=== PATIENT | male | born 1960 | race Caucasian/White ===

== ENCOUNTER 2020-01-03 11:00 | Emergency (ER) | payer MEDICARE, MEDICAID, SELFPAY ==
--- NOTE | 2020-01-03 11:01 | XR_ITS ---
WS: [id number] CHEST XRAY TECHNIQUE: Portable chest. CLINICAL INFORMATION: chest pain COMPARISON: None. FINDINGS: Heart: Normal cardiac silhouette. Lungs: Moderate chronic emphysematous changes. Bones: Hypertrophic changes thoracic spine. XR/XR chest 1V portable [id number] IMPRESSION: No acute chest findings
--- NOTE | 2020-01-03 11:01 | ECG_ITS ---
Measurements Intervals [place] Rate: 97 P: -58 HI: 121 QRS: 35 QRSD: 68 T: 72 QT: 334 QTc: 425 ECTOPIC ATRIAL RHYTHM ABNORMAL RHYTHM ECG No previous ECG available for comparison Electronically Signed On 01-05-2020 18:23:51 CDT by Flory Pino M.D. [id number]
[2020-01-03 11:05] VITALS: BMI 36.3
--- NOTE | 2020-01-03 11:10 | W.ED.CHESTPA ---
HPI - Chest Pain General: Chief Complaint: Chest Pain Stated Complaint: cp Time Seen by Provider: 01/03/20 11:03 History of Present Illness: HPI narrative: This patient is a 59-year-old male presenting with chest pain for about an hour. He lives in [place] and he and his were out for a drive today. He reports that the chest pain started while driving and is still ongoing. He has chronic shortness of breath due to COPD. He tells me that he has a 4.2 cm aneurysm on the side of his heart. He takes blood pressure medication and for medicines for bipolar disorder. He thinks he also takes a medicine that starts with a be because of the aneurysm. He is never had a heart attack that he knows of. He was admitted to the hospital in [place] for a few nights due to similar chest pain and apparently nothing serious was found. He also has some tingling in his left hand but notes that he has a slipped disc in his neck that sometimes causes that as well. MD complaint: chest pain Pertinent past history: known aortic aneurysm (He reports having an aneurysm but is unclear on its location) Onset (ago): hour(s) (1) Timing of current episode: constant Prior episodes: Yes Onset: during rest Pain location: left chest Pain radiation: left arm Severity: severe Quality: tightness and fullness Relieving factors: nothing Exacerbating factors: nothing Associated symptoms: Reports dyspnea; Deny abdominal pain, fever(s), nausea or vomiting Treatment prior to arrival: none Review of Systems General: Reports: 10 or more systems reviewed and unremarkable except in HPI and below Const: Denies: fever(s), chills, fatigue or malaise Eyes: Denies: change in vision ENMT: Denies: odynophagia Card: Reports: chest pain; Denies: swelling of feet/ankles Resp: Reports: dyspnea GI: Denies: abdominal pain, nausea or vomiting : Denies: flank pain Musc: Denies: neck pain or back pain Skin/Breast: Denies: rash Neuro: Denies: headache(s), numbness in extremities or weakness in extremities Scott/Lymph: Denies: easy bruising or easy bleeding PFSH ED PFSH: Social History Smoking and tobacco status: current every day smoker Physical Exam Const: COMMON NORMALS: no acute distress, patient oriented x3, no limitations and alert GENERAL APPEARANCE: cooperative and in distress (Mild, appears uncomfortable) NUTRITIONAL APPEARANCE: obese HENMT: HEAD & SCALP: normal to inspection FACE & SINUS: normal facial exam Eye: GENERAL EYE: appearance normal, both eyes and all related structures Neck/C-Spine: COMMON NORMALS: supple, no meningeal signs and no JVD Chest: COMMONS NORMALS: normal inspection of the chest Resp: COMMON NORMALS: normal respiratory effort, No use of accessory muscles and clear to auscultation bilaterally AUSCULTATION: clear to auscultation bilaterally and wheezes (Bilateral) scattered wheezes Cardio: COMMON NORMALS: no JVD, regular rate, regular rhythm and No murmurs present (Cardio) RATE: regular rate RHYTHM: regular rhythm GI: COMMON NORMALS: Normal to inspection, nondistended, normoactive bowel sounds present, Soft to palpation and non-tender INSPECTION: Yes normal to inspection AUSCULTATION: Yes normoactive bowel sounds PALPATION: Yes Soft to palpation Back/Pelvis: COMMON NORMALS: thoracic and lumbar spine normal to inspection Extremity: COMMON NORMALS: normal to inspection Neuro: COMMON NORMALS: patient oriented x3, moves all extremities, no focal motor deficits and no sensory deficits noted SENSORIUM/ORIENTATION: Yes alert MENINGEAL SIGNS: Yes no meningeal signs Psych: COMMON NORMALS: mental status grossly normal, cooperative and normal affect Skin: COMMON NORMALS: no rashes or lesions noted and turgor normal GENERAL SKIN EXAM: no rashes or lesions noted and turgor normal Course Reevaluation(s): Reevaluation #1: Patient feeling better. BP better. CT shows no aneurysm or other clinically significant abnormality. Second troponin pending. Reevaluation #2: Patient was restless and eager to be discharged. His CT came back with no aneurysm. His troponin and delta troponins were negative. His EKGs were completely normal. He was symptom-free at the time of discharge and plans to go home and follow-up with his own doctor. He understands that the limited work-up in the ED is not a definitive diagnosis of either heart disease or its absence. Vital Signs: Vital signs: Vital Signs Temperature 98.4 F 01/03/20 11:12 Pulse Rate 83 01/03/20 13:56 Respiratory Rate 19 H 01/03/20 13:56 Blood Pressure 166/104 01/03/20 13:56 Pulse Oximetry 95 01/03/20 13:56 MDM - Chest Pain Lab Data: Labs: Lab Results 01/03/20 01/03/20 01/03/20 Range/Units 11:22 11:22 11:22 WBC 7.3 (4.0-10.0) 10^3/ uL RBC 5.42 H (4.1-5.3) 10^6/u L Hgb 16.7 H (11.7-16.6) g/dL Hct 49.2 (42.0-52.0) % MCV 90.8 (80-94) fL MCH 30.8 (28.0-34.0) pg MCHC 33.9 (30.0-36.0) g/dL RDW 14.0 (12.1-15.1) % Plt Count 263 (130-400) 10^3/c mm MPV 9.6 (7.4-10.4) fL Neut % (Auto) 67.1 % Lymph % (Auto) 22.0 % [place] % (Auto) 8.0 % Eos % (Auto) 2.0 % Baso % (Auto) 0.5 % Neut # (Auto) 4.9 (1.8-7.7) 10^3/u L Lymph # (Auto) 1.6 (0.8-4.8) 10^3/u L [place] # (Auto) 0.6 (0.2-0.9) 10^3/u L Eos # (Auto) 0.2 (0.0-0.8) 10^3/u L Baso # (Auto) 0.0 (0.0-0.1) 10^3/u L Nucleated RBC % (a uto) 0 % Nucleated RBCs # 0.0 /100WBC Sodium 135 L (136-145) mmol/L Potassium 4.4 (3.5-5.1) mmol/L Chloride 96 L (98-107) mmol/L Carbon Dioxide 27 (22-29) mmol/L Anion Gap 16.4 (5-19) BUN 23 (8-23) mg/dL Creatinine 1.1 (0.7-1.2) mg/dL GFR Calculation 68.1 L (90-130) mL/min Glucose 146 H (65-115) mg/dL Calculated Osmolal ity 279 L (285-295) mOsm/k g Calcium 9.2 (8.5-10.5) mg/dL Total Bilirubin 0.5 (0.15-1.2) mg/dL AST 64 H (0-40) U/L ALT 56 H (0-41) U/L Alkaline Phosphata se 68 (40-130) IU/L Troponin T Baselin e 15 (0-15) ng/mL Troponin T 120 Min ambler (0-15) ng/mL Delta Troponin T (0-10) ABS# Total Protein 7.1 (6.6-8.7) g/dL Albumin 4.4 (3.5-5.2) g/dL Globulin 2.7 (1.3-4.6) g/dL 01/03/20 Range/Units 13:18 WBC (4.0-10.0) 10^3/ uL RBC (4.1-5.3) 10^6/u L Hgb (11.7-16.6) g/dL Hct (42.0-52.0) % MCV (80-94) fL MCH (28.0-34.0) pg MCHC (30.0-36.0) g/dL RDW (12.1-15.1) % Plt Count (130-400) 10^3/c mm MPV (7.4-10.4) fL Neut % (Auto) % Lymph % (Auto) % [place] % (Auto) % Eos % (Auto) % Baso % (Auto) % Neut # (Auto) (1.8-7.7) 10^3/u L Lymph # (Auto) (0.8-4.8) 10^3/u L [place] # (Auto) (0.2-0.9) 10^3/u L Eos # (Auto) (0.0-0.8) 10^3/u L Baso # (Auto) (0.0-0.1) 10^3/u L Nucleated RBC % (a uto) % Nucleated RBCs # /100WBC Sodium (136-145) mmol/L Potassium (3.5-5.1) mmol/L Chloride (98-107) mmol/L Carbon Dioxide (22-29) mmol/L Anion Gap (5-19) BUN (8-23) mg/dL Creatinine (0.7-1.2) mg/dL GFR Calculation (90-130) mL/min Glucose (65-115) mg/dL Calculated Osmolal ity (285-295) mOsm/k g Calcium (8.5-10.5) mg/dL Total Bilirubin (0.15-1.2) mg/dL AST (0-40) U/L ALT (0-41) U/L Alkaline Phosphata se (40-130) IU/L Troponin T Baselin e (0-15) ng/mL Troponin T 120 Min ambler 15.10 H (0-15) ng/mL Delta Troponin T 0.10 (0-10) ABS# Total Protein (6.6-8.7) g/dL Albumin (3.5-5.2) g/dL Globulin (1.3-4.6) g/dL EKG Data^: EKG 1: EKG interpretation date: 01/03/20 EKG interpretation time: 11:20 Interpretation: rate 97, normal intervals, normal QRS duration. No ST changes. sinus rhythm EKG 2: EKG interpretation date: 01/03/20 EKG interpretation time: 12:53 Interpretation: NSR (computer interpretation is ectopic atrial rhythm). Normal rate, intervals, axis. Discharge Plan Discharge Patient Disposition: Home, Self-Care Clinical Impression: Chest pain Qualifiers: Chest pain type: unspecified Qualified Code(s): R07.9 - Chest pain, unspecified Condition: Stable Prescriptions: No Action metformin 500 mg tablet 500 mg PO BID RF: 0 cetirizine 10 mg tablet 10 mg PO DAILY RF: 0 sertraline 100 mg tablet 100 mg PO DAILY RF: 0 divalproex 500 mg tablet,delayed release (DR/EC) 1,000 mg PO BEDTIME RF: 0 omeprazole 40 mg capsule,delayed release(DR/EC) 40 mg PO DAILY RF: 0 gabapentin 800 mg tablet 800 mg PO TID RF: 0 buspirone 10 mg tablet 10 mg PO BID RF: 0 lisinopril 10 mg tablet 10 mg PO DAILY RF: 0 ergocalciferol (vitamin D2) 1,250 mcg (50,000 unit) Capsule 50,000 unit PO Q7D RF: 0 celecoxib 100 mg capsule 100 mg PO DAILY RF: 0 Excedrin Migraine 250-250-65 mg Tablet 1 tab PO PRN RF: 0 rosuvastatin 10 mg tablet 10 mg PO DAILY RF: 0 Symbicort 160-4.5 mcg/actuation HFA aerosol inhaler 1 puff INHALATION BID RF: 0 Bystolic 5 mg tablet 2.5 mg PO DAILY RF: 0 Vascepa 1 gram capsule 1 g PO BID RF: 0 Vitamin C 1 tab PO DAILY RF: 0 albuterol sulfate 2.5 mg /3 mL (0.083 %) solution for nebulization 2.5 mg inhalation Q4H RF: 0 Discharge Orders: Discharge Order (Routine); Ordered 01/03/20 Ordered By: Pat Karimi Discharge Diet: Low Fat Discharge Activity: Resume usual activity Patient Instructions: Chest Pain (ED) Activity Restrictions/Additional Instructions: Call you doctor in [place] today to discuss the episode of chest pain that you had today. They can get the records from the visit here as well. Return to the nearest ED if worse chest pain, trouble breathing, or any other new or concerning symptoms. Even though the tests today were normal, it is still important to follow up with your doctor as more testing might be needed. Discharge Date/Time: 01/03/20 13:56 Coding Level of Care Code ED Glass Gl[facility]ier for Tiana Redmond Exam Comprehensive
[2020-01-03 11:12] VITALS: BP 170/122; PULSE 98; RESP 18; TEMP 36.9; O2SAT 95
--- NOTE | 2020-01-03 11:14 | PC.NURSE ---
EKG done at 1110 and shown to ER doctor
--- NOTE | 2020-01-03 11:21 | CT_ITS ---
WS: [id number] CTA CHEST ABDOMEN AND PELVIS TECHNIQUE: Noncontrast plus contrast enhanced CTA of the chest, abdomen, and pelvis with coronal and sagittal reformatted images and additional MIP Images. CLINICAL INFORMATION: eval for aortic aneurysm COMPARISON: None. DLP: 2855.[address] scans at [facility] use at least one of these dose optimization techniques: automat ed exposure control; mA and/or kV adjustment per patient size (includes targeted exams where dose is matched to clinical indication); or iterative reconstruction. FINDINGS: Normal caliber thoracic aorta. No evidence of thoracic aortic aneurysm. Normal aortic arch. Normal ca liber abdominal aorta. No evidence of abdominal aortic aneurysm. Mild aortic calcification distal abd ominal aorta and bilateral iliac arteries. Celiac and SMA are patent. Proximal renal arteries are patent. No evidence of aortic dissection. Mild diffuse fatty infiltration of the liver. Gallbladder is contracted. Normal spleen. Normal GE carlitos ction. Normal pancreas. Adrenal glands are normal. Normal renal parenchymal enhancement. No hydroneph rosis. Small umbilical/supraclavicular hernia containing a partially herniated loop of small bowel in the mi dline. No evidence of obstruction. Prior postoperative changes sigmoid colon with partial colectomy a nd anastomosis. Diverticulosis. No mediastinal or hilar lymphadenopathy. The lungs are well aerated. No acute pulmonary infiltrates. Slight atelectasis in the lung bases. CT/CT angio chest abdomen pelvis IMPRESSION: 1. Normal caliber thoracic and abdominal aorta. No evidence of abdominal aorti c aneurysm. 2. No evidence of aortic dissection. 3. Small midline umbilical/supra umbilical hernia containing a small loop part ially herniated small bowel. No evidence of ischemia or surrounding fluid. No e vidence of obstruction. 4. No acute pulmonary infiltrates. 5. No mediastinal or hilar lymphadenopathy. 6. Hepatomegaly with diffuse fatty infiltration. 7. Prior postoperative changes sigmoid colon.
[2020-01-03 11:32] LABS: Basophils % 0.5 %; Eosinophils # 0.2 10^3/uL (0.0-0.8); Hematocrit 49.2 % (42.0-52.0); Hemoglobin 16.7 g/dL (11.7-16.6); Lymphocytes # 1.6 10^3/uL (0.8-4.8); Mean Corpuscular HGB Conc 33.9 g/dL (30.0-36.0); Mean Corpuscular Hemoglobin 30.8 pg (28.0-34.0); Mean Corpuscular Volume 90.8 fL (80-94); Mean Platelet Volume 9.6 fL (7.4-10.4); Monocytes # 0.6 10^3/uL (0.2-0.9); Neutrophils # 4.9 10^3/uL (1.8-7.7); Neutrophils % 67.1 %; Nucleated Red Blood Cells % 0 %; Platelet Count 263 10^3/cmm (130-400); Red Blood Count 5.42 10^6/uL (4.1-5.3); White Blood Count 7.3 10^3/uL (4.0-10.0)
[2020-01-03 11:45] VITALS: O2SAT 93
[2020-01-03 11:46] LABS: Albumin Level 4.4 g/dL (3.5-5.2); Alkaline Phosphatase 68 IU/L (40-130); Blood Urea Nitrogen 23 mg/dL (8-23); Calcium 9.2 mg/dL (8.5-10.5); Carbon Dioxide 27 mmol/L (22-29); Chloride 96 mmol/L (98-107); Globulin 2.7 g/dL (1.3-4.6); Glomerular Filtration Rate 68.1 mL/min (90-130); Glucose 146 mg/dL (65-115); Osmolality Calculated 279 mOsm/kg (285-295); Sodium 135 mmol/L (136-145); Total Bilirubin 0.5 mg/dL (0.15-1.2); Total Protein 7.1 g/dL (6.6-8.7)
[2020-01-03 11:48] LABS: Troponin(5th) Baseline 15 ng/mL (0-15)
[2020-01-03 11:59] LABS: Alanine Aminotransferase 56 U/L (0-41); Aspartate Amino Transferase 64 U/L (0-40)
--- NOTE | 2020-01-03 11:59 | PC.NURSE ---
pt transported to CT by stretcher with tech
[2020-01-03] MEDS: iohexol 350 mg/mL 100 mL Btl IV (12:06)
[2020-01-03 12:20] LABS: Anion Gap 16.4 (5-19); Potassium 4.4 mmol/L (3.5-5.1)
[2020-01-03] MEDS: nitroglycerin 0.4 mg sublingual Tablet SUBLINGUAL (12:28)
--- NOTE | 2020-01-03 12:54 | PC.NURSE ---
EKG done at 1252 and shown to ER doctor
--- NOTE | 2020-01-03 13:01 | ECG_ITS ---
Measurements Intervals [place] Rate: 97 P: -58 [place]: 121 QRS: 35 QRSD: 68 T: 72 QT: 334 QTc: 425 ECTOPIC ATRIAL RHYTHM ABNORMAL RHYTHM ECG No previous ECG available for comparison Electronically Signed On 01-05-2020 18:48:16 CDT by Flory Pino M.D. [email or web address]
[2020-01-03 13:44] VITALS: BP 166/104; PULSE 84; RESP 21; O2SAT 94
[2020-01-03 13:56] VITALS: BP 166/104; PULSE 83; RESP 19; O2SAT 95
--- NOTE | 2020-01-03 17:01 | ECG_ITS ---
Measurements Intervals [place] Rate: 87 P: -58 [place]: 126 QRS: 39 QRSD: 71 T: 73 QT: 356 QTc: 429 ECTOPIC ATRIAL RHYTHM ABNORMAL RHYTHM ECG No previous ECG available for comparison Electronically Signed On 01-03-2020 15:46:13 CDT by Sd Bautista M.D. [email or web address]
== END 2020-01-03 13:56 | disposition home or self-care (01) ==
PROVIDERS: Physician Assistant; Emergency Provider Emergency Medicine
DX: R07.9 Chest pain, unspecified (principal); Z79.84 Long term (current) use of oral hypoglycemic drugs; F17.210 Nicotine dependence, cigarettes, uncomplicated
CPT/HCPCS: 12345; 36415; 71045; 71275; 74174; 80053; 84484; 85025; 93005; 99283; 99284; Q9967